=== PATIENT | female | born 1970 | race Caucasian/White ===

== ENCOUNTER 2016-09-16 07:16 | Emergency (ER) | payer OTHER ==
[~2016-09-16] VITALS: Ht 175.3 cm; Wt 79.0 kg
[2016-09-16 07:19] VITALS: BP 117/72; TEMP 37; Ht 175.3 cm; Wt 79.0 kg
[2016-09-16] MEDS ORDERED: PHENAZOPYRIDINE HCL 200 MG TAB PO STA (07:33)
[2016-09-16] MEDS ORDERED: CIPROFLOXACIN 500 MG TAB PO STA (07:33)
--- NOTE | 2016-09-16 07:35 | EMERGENCY ROOM VISIT NOTE ---
History Report prepared by Holden: Trevor Quijano Under the Supervision of: Dr. Carl Barber M.D. First contact with patient: 07:24 Chief Complaint: URINARY SYMPTOMS Stated Complaint: BLOODY URINE,PAINFUL URINATION,TENDER ABDOMEN Nursing Triage Summary: pt reports starting tues with urinary sx freq and urgency , last night noted blood and pain with urination History of Present Illness The patient is a 46 year old female who presents to the Emergency Room with complaints of persistent urinary symptoms for the past four days. The patient started experiencing urinary frequency four days ago. She woke up early this morning and experienced burning with urination as well as hematuria. She also notes some abdominal pain. She denies fevers, nausea, vomiting, back pain, leg swelling or abnormal vaginal discharge. Her symptoms are the same as past UTIs, which she does not experience frequently. The patient did not eat today. She has tolerated Pyridium in the past. She has not taken anything for pain this morning. She was treated for sinusitis last week with Azithromycin. The patient denies the possibility of s/p hysterectomy. Source of History: patient Onset: four days ago Position: other (urinary) Quality: other (UTI symptoms) Timing: other (persistent) Associated Symptoms: + abdominal pain, + urinary symptoms (frequency, burning, hematuria), No back pain, No fevers, No nausea, No vomiting Review of Systems See HPI for pertinent positives & negatives. A total of 6 systems reviewed and were otherwise negative. Past Medical & Surgical Medical Problems: (1) H/O urinary tract infection Surgical Problems: (1) S/P hysterectomy Family History No pertinent family history Social History Smoking Status: Never Smoker Marital Status: Housing Status: lives with family Current/Historical Medications Scheduled Ciprofloxacin Hcl (Cipro), 500 MG PO BID Levothyroxine Sodium (Synthroid), 25 MCG PO 5XWK Thyroid ([place] Thyroid), 1 TAB PO 5XWK Topiramate (Topamax), 100 MG PO DAILY Scheduled PRN Phenazopyridine HCl (Pyridium), 200 MG PO TID PRN for Frequency/Burning w/ Urination Allergies Coded Allergies: Nitrofurantoin (Verified Allergy, Unknown, hives, 09/16/16) Physical Exam Vital Signs Date Time Temp Pulse Resp B/P Pulse Ox O2 Delivery O2 Flow Rate FiO2 09/16/16 07:54 78 18 99 09/16/16 07:19 37.0 88 18 117/72 98 Room Air Physical Exam GENERAL: Patient is well appearing and in no acute distress. NECK: No stridor, no adenopathy, no meningismus, trachea is midline. LUNGS: No dyspnea. Clear to auscultation and equal bilaterally. No wheeze, no rhonchi. HEART: Regular rate and rhythm. No murmurs, rubs, gallops appreciated. ABDOMEN: Soft, nontender, bowel sounds positive, no masses appreciated, no peritonitis. BACK: No midline tenderness. Mild right CVA tenderness to palpation. EXTREMITIES: Normal motion all extremities, no cyanosis, no edema. NEUROLOGIC: Alert and oriented, no acute motor or sensory deficits, no focal weakness, cranial nerves grossly intact. SKIN: No rash, no jaundice, no diaphoresis. Medical Decision & Procedures Laboratory Results Test 09/16/16 07:15 Urine Color YELLOW Urine Appearance CLOUDY (CLEAR) Urine pH 6.0 (4.5-7.5) Urine Specific [place] 1.010 (1.000-1.030) Urine Protein TRACE (NEG) Urine Glucose (UA) NEG (NEG) Urine Ketones NEG (NEG) Urine Occult Blood 2+ (NEG) Urine Nitrite NEG (NEG) Urine Bilirubin NEG (NEG) Urine Urobilinogen NEG (NEG) Urine Leukocyte Esterase LARGE (NEG) Urine WBC (Auto) >30 /hpf (0-5) Urine RBC (Auto) 5-10 /hpf (0-4) Urine Hyaline Casts (Auto) 5-10 /lpf (0-5) Urine Epithelial Cells (Auto) 5-10 /lpf (0-5) Urine Bacteria (Auto) 4+ (NEG) Laboratory results as reviewed by me. Medications Administered Medications (Trade) Dose Ordered Sig/[place] Route Start Time Stop Time Status Last Admin Dose Admin Ciprofloxacin (Cipro Tab) 500 mg NOW STAT PO 09/16/16 07:33 09/16/16 07:34 DC 09/16/16 07:50 500 MG Phenazopyridine HCl (Pyridium Tab) 200 mg NOW STAT PO 09/16/16 07:33 09/16/16 07:34 DC 09/16/16 07:50 200 MG ED Course 0730: The patient was evaluated in room A12b. A complete history and physical exam was performed. 0733: Pyridium 200 mg PO, Cipro 500 mg PO. 0745: Discussed results and discharge instructions: She verbalized understanding and agreement. The patient is ready for discharge. Medical Decision Differential: UTI, Urethritis, Pyelonephritis, STI, Herpetic, Vaginitis, Hyperglycemia, Yeast, PID, Cystitis, Hemorrhagic Cystitis, amongst other pathologies entertained. 46 yr old female arrives with urinary burning, frequency, mild right flank pain. No fevers, vomiting, nor other systemic symptoms. She is stable and without peritonitis. History of UTI with previous similar to this. No recent abx. With symptoms and blood in urine along with right flank pain seems that cipro is indicated. Discussed risks associated with cipro. Stable and feels well at discharge. Reviewed symptoms requiring return. Impression Primary Impression: Acute hemorrhagic cystitis Scribe Attestation The scribe's documentation has been prepared under my direction and personally reviewed by me in its entirety. I confirm that the note above accurately reflects all work, treatment, procedures, and medical decision making performed by me. Departure Information Dispostion Home / Self-Care Prescriptions Phenazopyridine HCl (Pyridium) 200 Mg Tab 200 MG PO TID Y for Frequency/Burning w/Urination, #9 TAB Prov: Carl Barber M.D. 09/16/16 Ciprofloxacin Hcl (CIPRO) 500 Mg Tab 500 MG PO BID, #14 TAB Prov: Carl Barber M.D. 09/16/16 Referrals No Doctor, Assigned (PCP) Forms HOME CARE DOCUMENTATION FORM, IMPORTANT VISIT INFORMATION Patient Instructions ED UTI Cystitis Female, [facility]
[2016-09-16] MEDS ORDERED: TOPI25TA10 PO (07:37)
[2016-09-16] MEDS ORDERED: THYR15TA PO (07:37)
[2016-09-16] MEDS ORDERED: LEVO25TA PO (07:37)
[2016-09-16] MEDS ORDERED: CIPR-255 PO (07:44)
[2016-09-16] MEDS ORDERED: PHEN-876 PO (07:44)
[2016-09-16 07:54] VITALS: PULSE 78; O2SAT 99
[2016-09-16 08:13] LABS: URINE APPEARANCE CLOUDY (CLEAR); URINE BILIRUBIN NEG (NEG); URINE COLOR YELLOW; URINE NITRITE NEG (NEG); UROBILINOGEN NEG (NEG); ZZUR CULT IF INDIC CLEAN CATCH YES
[2016-09-16 08:20] LABS: MANUAL MICROSCOPIC REQUIRED? NO; REVIEW REQ? NO
--- NOTE | 2016-09-19 11:10 | Pharmacy Progress Note ---
ED Pharmacist Culture FollowUp Date of Service: September 19, 2016. Patient's urine cx from 09/16 is growing >100,000CFU/mL e coli. She was seen in the ER that day for c/o dysuria, frequency, abd pain and hematuria. UA was consistent with UTI. She did not have systemic symptoms, no fever, no NV. She did however have mild R CVA tenderness. She was ultimately dx with UTI/ hemorrhagic cystitis and discharged w/ Rx for Ciprofloxacin 500mg PO BID x 7 days. E coli is sensitive to this AM, duration is appropriate for UTI and even for early pyelo. No action required.
== END 2016-09-16 07:55 | disposition home or self-care (01) ==
LOC: C.EDB 07:18 → C.EDA 07:55
DX: N30.90 Cystitis, unspecified without hematuria (principal)

== ENCOUNTER → 2016-12-22 | Outpatient (CLI) | payer BC ==
[~2016-12-22] MED LIST: CIPR-255 PO; LEVO25TA PO; PHEN-876 PO; THYR15TA PO; TOPI25TA10 PO
--- NOTE | 2017-01-02 15:13 | MAMMOGRAPHY REPORT ---
THIS REPORT HAS BEEN AMENDED. BILATERAL DIGITAL SCREENING MAMMOGRAM TOMOSYNTHESIS WITH CAD: 12/22/2016 CLINICAL HISTORY: Routine screening. Patient has no complaints. TECHNIQUE: Breast tomosynthesis in addition to standard 2D mammography was performed. Current study was also evaluated with a Computer Aided Detection (CAD) system. COMPARISON: No prior exams were available for comparison. BREAST COMPOSITION: There are scattered areas of fibroglandular density in both breasts. FINDINGS: No suspicious mass, architectural distortion or cluster of suspicious microcalcifications is seen. IMPRESSION: ACR BI-RADS CATEGORY 1: NEGATIVE There is no mammographic evidence of malignancy. Prior outside mammograms are currently being reques nakul and if obtained they will be reviewed, compared to the current exam to assess for any more subtle changes, and an addendum will be made to this report. Otherwise, a 1 year screening mammogram is re commended. The patient will receive written notification of the results. Approximately 10% of breast cancers are not detected with mammography. A negative mammographic report should not delay biopsy if a clinically suggestive mass is present. Mariposa Cheatham M.D. ay/:01/01/2017 16:15:35 Neuropsychology Division Chief: Rebekah TRIMBLE(Terri)(Vinicius), [facility] letter sent: Normal 04/24 BI-RADS Code: ACR BI-RADS Category 1: Negative AMENDMENT: 01/03/2017 Mariposa Cheatham M.D. Prior outside mammograms from [facility] became available for review. The prior exams w ere dated 08/14/2011, 09/04/2012 and 10/15/2013. There has been no significant interval change ravinder ring to the outside mammograms. There is stable asymmetry in the superior left breast. No new suspi cious mass, architectural distortion, developing asymmetry or suspicious calcifications are identifie d. Recommend routine screening in 1 year. Amended BI-RADS: ACR BI-RADS Category 1: Negative letter sent: Normal 2
== END | disposition home or self-care (01) ==
LOC: C.MAMM 10:47
PROVIDERS: ATTEND Family Medicine
DX: Z12.31 Encounter for screening mammogram for malignant neoplasm of breast (principal)

== ENCOUNTER → 2017-03-28 | Outpatient (CLI) | payer BC ==
[~2017-03-28] MED LIST changes: -PHEN-876 PO
[2017-03-28 10:32] LABS: URINE APPEARANCE CLEAR (CLEAR); URINE BILIRUBIN NEG (NEG); URINE COLOR YELLOW; URINE EPITHELIAL CELL AUTO 0-5 /lpf (0-5); URINE NITRITE NEG (NEG); URINE SPECIFIC GRAVITY 1.006 (1.000-1.030); UROBILINOGEN NEG (NEG)
[2017-03-28 10:39] LABS: MANUAL MICROSCOPIC REQUIRED? NO; REVIEW REQ? NO
== END | disposition home or self-care (01) ==
LOC: C.LAB1850 08:50
PROVIDERS: ATTEND Internal Medicine Rheumatology
DX: G62.9 Polyneuropathy, unspecified (principal); M35.9 Systemic involvement of connective tissue, unspecified; H53.9 Unspecified visual disturbance; M25.50 Pain in unspecified joint

== ENCOUNTER → 2017-05-04 | Outpatient (CLI) | payer OTHER ==
--- NOTE | 2017-05-04 12:40 | DIAGNOSTIC IMAGING REPORT ---
MRI OF THE BRAIN WITHOUT IV CONTRAST CLINICAL HISTORY: Visual changes. COMPARISON STUDY: No priors. TECHNIQUE: MRI of the brain was performed utilizing various T1 and T2-weighted sequences in the axial, sagittal, and coronal planes. IV contrast was not administered for this examination. FINDINGS: Brain parenchyma: The brain parenchyma is normal in appearance. There is no hemorrhage or mass effect. There is no restricted diffusion to suggest acute ischemia. Obrien-white matter differentiation is preserved. No extra-axial fluid collection is seen. The cerebellar tonsils are normal in configuration. Ventricles, sulci, and cisterns: Normal in configuration. Pituitary and sella: Unremarkable. Intracranial vasculature: Normal flow voids are maintained at the skull base. Orbits: The bony orbits are grossly intact. Orbital contents are normal in appearance. Sinuses and mastoids: Clear. Calvarium: Unremarkable. Cervical cord: Partially visualized cervical spinal cord is normal in morphology and signal intensity. IMPRESSION: No acute intracranial abnormality. Electronically signed by: Garrett Mathur M.D. 05/04/2017 12:39 PM Dictated Date/Time: 05/04/2017 12:37 PM
== END | disposition home or self-care (01) ==
LOC: C.MRIBC 10:47
PROVIDERS: ATTEND Psychiatry & Neurology Neurology
DX: H53.8 Other visual disturbances (principal)

== ENCOUNTER → 2017-05-14 | Outpatient (CLI) | payer OTHER | END | disposition home or self-care (01) | LOC: C.LAB1850 15:15 | PROVIDERS: ATTEND Psychiatry & Neurology Neurology | DX: G62.9 Polyneuropathy, unspecified (principal); R20.0 Anesthesia of skin ==

== ENCOUNTER → 2017-08-02 | Outpatient (CLI) | payer OTHER ==
--- NOTE | 2017-08-02 09:12 | DIAGNOSTIC IMAGING REPORT ---
R KNEE 1 OR 2 VIEWS ROUTINE CLINICAL HISTORY: 47 years-old Female presenting with right knee PAIN for 1 month. TECHNIQUE: Frontal and lateral views of the right knee were obtained. COMPARISON: None. FINDINGS: No acute fracture or malalignment. Multiple suspected loose bodies project over the posterior knee and immediately superior to the femoral condyles. No gross evidence of a knee joint effusion. IMPRESSION: 1. Multiple suspected loose bodies in the posterior and posterior superior knee joint. 2. No acute osseous injury. Electronically signed by: Marino Davison M.D. 08/02/2017 9:11 AM Dictated Date/Time: 08/02/2017 9:09 AM
== END | disposition home or self-care (01) ==
LOC: C.RADBC 08:40
PROVIDERS: ATTEND Family Medicine
DX: M25.561 Pain in right knee (principal)

== ENCOUNTER → 2017-08-07 | Outpatient (CLI) | payer OTHER | END | disposition home or self-care (01) | LOC: C.RDSM 15:06 | PROVIDERS: ATTEND Orthopaedic Surgery | DX: M25.561 Pain in right knee (principal) ==

== ENCOUNTER → 2017-08-15 | Outpatient (CLI) | payer OTHER ==
--- NOTE | 2017-08-15 17:27 | DIAGNOSTIC IMAGING REPORT ---
MRI OF THE RIGHT KNEE WITHOUT CONTRAST CLINICAL HISTORY: Right knee mass. Evaluate for cartilage tumor. Right knee pain. Previous right knee surgery. COMPARISON STUDY: Knee radiographs August 07, 2017. TECHNIQUE: Utilizing a 1.5 Luann magnet and dedicated coil, multiplanar, multiecho imaging of the right knee was performed without intravenous or intraarticular contrast. FINDINGS: Alignment of the right knee is anatomic. Extensor mechanism is intact. This exam is mildly compromised by motion artifact. The anterior and posterior cruciate ligaments are intact. The lateral collateral ligament and medial collateral ligament are intact. Although sensitivity is slightly diminished on this exam, no meniscal tear is present. Fine. There is no right knee joint effusion. Note is made of multiple T1 and T2 hypointense abnormalities posterior to the posterior cruciate ligament that measure up to 1.5 cm. These suggest joint bodies and likely correspond to the apparent chondroid lesion shown on radiographs. There are multiloculated cystic abnormalities adjacent to the proximal tibiofibular joint that likely reflect complex ganglion cysts. A marker was placed on the skin at site of palpable abnormality. No corresponding lesion was noted on this unenhanced exam. No suspicious marrow replacement is present. There is mild chondrosis of the medial patellar cartilage. There is no high-grade chondrosis within the right knee. IMPRESSION: 1. Multiple joint bodies located posterior to the posterior cruciate ligament which correspond to the apparent chondroid lesion shown on radiograph August 07, 2017. 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 2. Complex multiseptated cystic abnormalities centered on the proximal tibiofibular joint which likely reflect ganglion cysts. 3. No meniscal tear. 4. No soft tissue mass. 5. Mild patellofemoral chondromalacia. Electronically signed by: Maury Avila M.D. 08/15/2017 5:25 PM Dictated Date/Time: 08/15/2017 5:03 PM
== END | disposition home or self-care (01) ==
LOC: C.MRI 16:01
PROVIDERS: ATTEND Orthopaedic Surgery
DX: M25.861 Other specified joint disorders, right knee (principal); M23.41 Loose body in knee, right knee